=== PATIENT | female | born 1985 | race Caucasian/White ===

== ENCOUNTER 2017-03-26 16:25 | Emergency (ER) | payer BC, OTHER ==
[~2017-03-26] VITALS: Ht 167.6 cm; Wt 61.2 kg
[~2017-03-26 16:25] MED LIST: FLORASTOR250 MG ORAL; GABAPENTIN100 MG ORAL; KLONOPIN1 MG ORAL; MAXALT5 MG PO; NORCO 5-325 TA1 EACH ORAL; SERTRALINE HCL100 MG PO; TRAZODONE HCL150 MG ORAL
[2017-03-26] MEDS ORDERED: UNOBMED (16:35)
[2017-03-26] MEDS ORDERED: KLONOPIN2 MG PO (16:35)
[2017-03-26] MEDS ORDERED: REGLAN5 MG ORAL (16:35)
[2017-03-26] MEDS ORDERED: TRAZODONE HCL150 MG ORAL (16:35)
[2017-03-26] MEDS ORDERED: ZOFRAN4 M1 ORAL (16:35)
[2017-03-26 16:45] VITALS: BP 85/59
--- NOTE | 2017-03-26 16:56 | Emergency Room Report ---
History of Present Illness General Chief Complaint: Seizure Source: Patient Present Illness HPI Patient presents with possible seizure disorder Patient herself reports that she was released from the hospital early this morning She was going to see her therapist She was at the therapist office for over 1-1/2 hours The was apparently cancellation secondary to some family issues patient was feeling lightheaded and sounds to possibly have had a syncopal episode At this time feels generally weak Denies any focal weakness patient reports that yesterday she taking too many trazodone was and therefore held her medication today Denies any homicidal or suicidal thoughts patient is on multiple medications at this time Allergies: Coded Allergies: AMOXICILLIN (Verified Allergy, Unknown, UNK, 04/30/15) Bumble Bee (Unverified Allergy, Unknown, 03/26/17) DIPHENHYDRAMINE (Unverified Allergy, Unknown, 03/26/17) PROMETHAZINE (Verified Allergy, Unknown, UNK, 04/30/15) Patient History Past Medical History: see triage record Pertinent Family History: none Last Menstrual Period: "Missed a few" Now: No - Denies sexual activity. Reviewed Nursing Documentation: PMH: Agreed, PSxH: Agreed Nursing Documentation-PMH Hx Cardiac Problems: No - SYNCOPE, HUNT, NECK AND BACK PAIN Hx Gastrointestinal Problems: Yes - IBS "no gastric empyting w/ SMA." Hx Seizures: Yes - Pseudoseizure Review of Systems All Other Systems: negative except mentioned in HPI Physical Exam Vital Signs Date Time Temp Pulse Resp B/P (MAP) Pulse Ox O2 Delivery O2 Flow Rate FiO2 03/26/17 16:23 98.1 75 18 103/66 98 Room Air Sp02 EP Interpretation: reviewed, normal General Appearance: well appearing, no apparent distress Head: normocephalic, atraumatic Eyes: bilateral eye PERRL, bilateral eye EOMI ENT: hearing grossly normal, normal pharynx, TMs + canals normal, uvula midline Neck: full range of motion, supple, no meningismus, no bony tend Respiratory: lungs clear, normal breath sounds, no rhonchi, no respiratory distress, no retraction, no accessory muscle use Cardiovascular #1: normal peripheral pulses, regular rate, rhythm, no edema, no gallop, no JVD, no murmur Gastrointestinal: normal bowel sounds, non tender, soft, no mass, no organomegaly, non-distended, no guarding, no hernia, no pulsatile mass, no rebound Genitourinary: no CVA tenderness Musculoskeletal: normal inspection Neurologic: oriented x3, responsive, 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, motor strength/ tone normal, sensory intact Psychiatric: mood/affect normal Skin: normal color, no rash, warm/dry, palpation normal Lymphatic: normal inspection, no adenopathy Medical Decision Making Diagnostic Impression: Primary Impression: Syncope Additional Impression: Seizure disorder ER Course Patient's presentation is unclear regarding syncope versus seizure Versus general weakness Patient has been awake and alert throughout her stay continues to do well Evaluation regarding cardiac and neurological pathology are benign And the patient is stable for close followup Please note that the patient was recently in the hospital with, increased trazodone intake At this time does not have any suicidal or homicidal thoughts denies taking any increase medications and will be seeing her psychiatrist tomorrow Patient apparently was in her therapist's office who was not able to see her when she had her acute episode, Labs Test 03/26/17 17:07 03/26/17 17:39 White Blood Count 5.8 K/UL (4.8-10.8) Red Blood Count 3.10 M/UL (4.20-5.40) Hemoglobin 10.7 G/DL (12.0-16.0) Hematocrit 31.2 % (37.0-47.0) Mean Corpuscular Volume 101 FL (80-99) Mean Corpuscular Hemoglobin 34.6 PG (27.0-31.0) Mean Corpuscular Hemoglobin Concent 34.3 G/DL (32.0-36.0) Red Cell Distribution Width 10.9 % (11.6-14.8) Platelet Count 180 K/UL (150-450) Mean Platelet Volume 6.1 FL (6.5-10.1) Neutrophils (%) (Auto) 47.9 % (45.0-75.0) Lymphocytes (%) (Auto) 42.8 % (20.0-45.0) Monocytes (%) (Auto) 8.1 % (1.0-10.0) Eosinophils (%) (Auto) 0.4 % (0.0-3.0) Basophils (%) (Auto) 0.8 % (0.0-2.0) Sodium Level 140 MMOL/L (136-145) Potassium Level 3.4 MMOL/L (3.5-5.1) Chloride Level 111 MMOL/L (98-107) Carbon Dioxide Level 21 MMOL/L (21-32) Anion Gap 8 mmol/L (5-15) Blood Urea Nitrogen 11 mg/dL (7-18) Creatinine 0.8 MG/DL (0.55-1.30) Estimat Glomerular Filtration Rate > 60 mL/min (>60) Glucose Level 149 MG/DL (74-106) Calcium Level 8.1 MG/DL (8.5-10.1) Urine Color Yellow Urine Appearance Cloudy Urine pH 5 (4.5-8.0) Urine Specific [place] 1.025 (1.005-1.035) Urine Protein Negative (NEGATIVE) Urine Glucose (UA) Negative (NEGATIVE) Urine Ketones Negative (NEGATIVE) Urine Occult Blood 2+ (NEGATIVE) Urine Nitrite Negative (NEGATIVE) Urine Bilirubin Negative (NEGATIVE) Urine Urobilinogen Normal MG/DL (0.0-1.0) Urine Leukocyte Esterase 1+ (NEGATIVE) Urine RBC 0-2 /HPF (0 - 2) Urine WBC 0-2 /HPF (0 - 2) Urine Squamous Epithelial Cells Many /LPF (NONE/OCC) Urine Bacteria Many /HPF (NONE) Urine HCG, Qualitative Negative EKG Diagnostic Results Rate: normal Rhythm: NSR ST Segments: no acute changes Rhythm Strip Diag. Results EP Interpretation: yes Rate: 77 Rhythm: NSR, no PVC's, no ectopy Last Vital Signs Date Time Temp Pulse Resp B/P (MAP) Pulse Ox O2 Delivery O2 Flow Rate FiO2 03/26/17 16:23 98.1 75 18 103/66 98 Room Air Status: improved Disposition: HOME, SELF-CARE Condition: Improved Additional Instructions: Patient is provided with the discharge instructions notified to follow up with primary doctor in the next 2-3 days otherwise return to the er with any worsening symptoms. Please note that this report is being documented using [employer] technology. This can lead to erroneous entry secondary to incorrect interpretation by the dictating instrument. ANAY ARGUELLES D.O. Mar 26, 2017 16:56
[2017-03-26 17:16] LABS: BASOPHILS % (AUTO) 0.8 % (0.0-2.0); EOSINOPHILS % (AUTO) 0.4 % (0.0-3.0); HEMATOCRIT 31.2 % (37.0-47.0); HEMOGLOBIN 10.7 G/DL (12.0-16.0); LYMPHOCYTES % (AUTO) 42.8 % (20.0-45.0); MEAN CORPUSCULAR VOLUME 101 FL (80-99); MONOCYTES % (AUTO) 8.1 % (1.0-10.0); NEUTROPHILS % (AUTO) 47.9 % (45.0-75.0); PLATELET COUNT 180 K/UL (150-450); RED CELL DISTRIBUTION WIDTH 10.9 % (11.6-14.8); WHITE BLOOD COUNT 5.8 K/UL (4.8-10.8)
[2017-03-26 17:35] LABS: ANION GAP 8 mmol/L (5-15); BLOOD UREA NITROGEN 11 mg/dL (7-18); CALCIUM 8.1 MG/DL (8.5-10.1); CARBON DIOXIDE 21 MMOL/L (21-32); CHLORIDE 111 MMOL/L (98-107); CREATININE 0.8 MG/DL (0.55-1.30); POTASSIUM 3.4 MMOL/L (3.5-5.1); SODIUM 140 MMOL/L (136-145)
[2017-03-26 18:09] LABS: APPEARANCE,URINE CLOUDY; BILIRUBIN, URINE NEGATIVE (NEGATIVE); GLUCOSE, URINE (UA) NEGATIVE (NEGATIVE); KETONES,URINE NEGATIVE (NEGATIVE); LEUKOCYTE ESTERASE ,URINE 1+ (NEGATIVE); NITRITE,URINE NEGATIVE (NEGATIVE); PH,URINE 5 (4.5-8.0); PROTEIN,URINE NEGATIVE (NEGATIVE); UROBILINOGEN,URINE NORMAL MG/DL (0.0-1.0)
[2017-03-26 18:10] LABS: COLOR,URINE YELLOW
[2017-03-26 18:26] VITALS: BP 89/68
== END 2017-03-26 18:26 | disposition home or self-care (01) ==
LOC: EDBD 16:25 → EMR 17:10
DX: R55 Syncope and collapse (principal); G40.909 Epilepsy, unspecified, not intractable, without status epilepticus; K58.9 Irritable bowel syndrome, unspecified; Z88.1 Allergy status to other antibiotic agents; Z88.8 Allergy status to other drugs, medicaments and biological substances
CPT/HCPCS: 36415; 80048; 81003; 81025; 82962; 85025; 87086; 96360; 99284